=== PATIENT | female | born 1935 | race Caucasian/White ===

== ENCOUNTER 2017-12-03 21:10 | Observation (INO) | payer MEDICARE ==
[2017-12-03] MEDS ORDERED: ASPIRIN 81 MG TABLET, CHEWABLE PO ONE (21:31)
[2017-12-03 22:02] LABS: ABSOLUTE BASOPHILS # (AUTO) 0.1 10^3/uL (0.0-0.2); ABSOLUTE EOSINOPHILS # (AUTO) 0.1 10^3/uL (0.0-0.6); ABSOLUTE LYMPHOCYTES (AUTO) 1.5 10^3/uL (0.5-4.7); ABSOLUTE MONOCYTES (AUTO) 0.5 10^3/uL (0.1-1.4); BASOPHILS % (AUTO) 2.2 % (0-2); EOSINOPHILS % (AUTO) 3.5 % (0-6); HEMATOCRIT 28.8 % (36.0-47.0); HEMOGLOBIN 10.4 g/dL (12.0-15.5); LYMPHOCYTES % (AUTO) 34.5 % (13-45); MEAN CORPUSCULAR VOLUME 89 fl (80-97); PLATELET COUNT 365 10^3/uL (150-450); RED BLOOD COUNT 3.24 10^6/uL (3.72-5.28); RED CELL DISTRIBUTION WIDTH 16.4 % (11.5-14.0); SEGMENTED NEUTROPHILS % (AUTO) 47.8 % (42-78); TOTAL CELLS COUNTED % (AUTO) 100 %; WHITE BLOOD COUNT 4.3 10^3/uL (4.0-10.5)
--- NOTE | 2017-12-03 22:18 | EKG REPORT ---
SEVERITY:- ABNORMAL ECG - SINUS RHYTHM RBBB AND LAFB : Confirmed by: Mariano Bergman 03-Dec-2017 22:17:17
--- NOTE | 2017-12-03 22:18 | RADIOLOGY REPORT (SQ) ---
EXAM DESCRIPTION: CHEST SINGLE VIEW COMPLETED DATE/TIME: 12/03/2017 10:04 pm REASON FOR STUDY: cp COMPARISON: None. NUMBER OF VIEWS: One view. TECHNIQUE: Single frontal radiographic view of the chest acquired. LIMITATIONS: None. FINDINGS: LUNGS AND PLEURA: Slight hyperinflation with areas of scar. Potential COPD. No pneumotho rax or pleural fluid or acute infiltrate. MEDIASTINUM AND HILAR STRUCTURES: No masses. Contour normal. HEART AND VASCULAR STRUCTURES: Heart normal in size. Normal vasculature. BONES: Thoracic scoliosis. HARDWARE: None in the chest. OTHER: No other significant finding. IMPRESSION: No acute abnormality. Findings as above. TECHNICAL DOCUMENTATION: JOB ID: [id number] [employer]- All Rights Reserved Reading location - IP/workstation name: [email or web address]
[2017-12-03 22:21] LABS: ALANINE AMINOTRANSFERASE 27 U/L (9-52); ALBUMIN 4.1 g/dL (3.5-5.0); ALKALINE PHOSPHATASE 69 U/L (38-126); ANION GAP 9 (5-19); ASPARTATE AMINO TRANSFERASE 28 U/L (14-36); BILIRUBIN,DIRECT 0.3 mg/dL (0.0-0.4); BLOOD UREA NITROGEN 14 mg/dL (7-20); CALCIUM 9.4 mg/dL (8.4-10.2); CARBON DIOXIDE 28 mmol/L (22-30); CHLORIDE 107 mmol/L (98-107); CREATINE KINASE 103 U/L (30-135); GLUCOSE 93 mg/dL (75-110); SODIUM 143.7 mmol/L (137-145); TOTAL PROTEIN 6.6 g/dL (6.3-8.2)
[2017-12-03 22:32] LABS: CREATINE KINASE MB 1.06 ng/mL (<4.55)
[2017-12-03 22:33] LABS: TROPONIN I < 0.012 ng/mL
--- NOTE | 2017-12-03 22:35 | ER Document Report ---
ED General - General Chief Complaint: Chest Pain Stated Complaint: CHEST PAIN Time Seen by Provider: 12/03/17 22:34 Notes: Patient is an 82-year-old female who presents with complaints of chest pain. Chest pain started last night was initially moderate to severe and substernal and nonradiating. Pain then turned into just a heaviness and tightness throughout the chest. No shortness of breath but she did feel very nauseous with the pain. Upon arrival to the ER she still has a lot of tightness and heaviness on her chest. She has received aspirin. She has some mild intermittent nausea but no vomiting. No associated abdominal pain. No previous history of coronary disease. She does have a history of hypertension high cholesterol. She had a stress test just over a year ago in [place]. She is currently visiting family from [place]. She is also noticed that she has been here that she has had some leg swelling which improved with compression hose. TRAVEL OUTSIDE OF THE [place] IN LAST 30 DAYS: No Past Medical History - Social History Smoking Status: Never Smoker Frequency of alcohol use: None Drug Abuse: None Family History: Reviewed & Not Pertinent Review of Systems - Review of Systems Notes: My Normal Review Basic REVIEW OF SYSTEMS: CONSTITUTIONAL : Denies fever, chills, or sweats. Denies recent illness. EENT: Denies eye, ear, throat, or mouth pain or symptoms. Denies nasal or sinus congestion. CARDIOVASCULAR: Chest pain RESPIRATORY: Denies cough, cold, or chest congestion. Denies shortness of breath, difficulty breathing, or wheezing. GASTROINTESTINAL: Denies abdominal pain. Some nausea. GENITOURINARY: Denies difficulty urinating, painful urination, burning, frequency, or blood in urine. MUSCULOSKELETAL: Denies neck or back pain or joint pain or swelling. SKIN: Denies rash or skin lesions. NEUROLOGICAL: Denies altered mental status or loss of consciousness. Denies headache. Denies weakness or paralysis or loss of use of either side. Denies problems with gait or speech. Denies sensory or motor loss. ALL OTHER SYSTEMS REVIEWED AND NEGATIVE. Physical Exam - Vital signs Vitals: Temp Pulse Resp BP Pulse Ox 97.7 F 62 18 148/72 H 97 12/03/17 22:14 12/03/17 22:14 12/03/17 22:14 12/03/17 22:14 12/03/17 22:14 - Notes Notes: General Appearance: Well nourished, alert, cooperative, no acute distress, no obvious discomfort. Well appearing. Vitals: reviewed, See vital signs table. Eyes: PERRL, EOMI, Conjuctiva clear Mouth: No decreasd moisture Lungs: No wheezing, No rales, No rhonci, No accessory muscle use, good air exchange bilaterally. Heart: Normal rate, Regular rythm, No murmur, no rub Abdomen: Normal BS, soft, No rigidity, No abdominal tenderness, No guarding, no rebound, Extremities: good pulses in all extremities, no swelling or tenderness in the extremities, no edema. Neuro: speech clear, oriented x 3, normal affect, responds appropriately to questions. Course - Re-evaluation Re-evalutation: 12/04/17 00:53 After the patient received a nitro paste for chest heaviness and tightness resolved. She is now comfortable and looks well. I did talk to her and her daughter at length about my recommendation to be admitted to the hospital being that her story is concerning and also she has multiple risk factors. Heart score is 5. Patient agrees with plan to be admitted to the hospital. I did speak with the hospitalist, Dr. Stanley, who agrees to admit the patient. Dictation of this chart was performed using voice recognition software; therefore, there may be some unintended grammatical errors. - Vital Signs Vital signs: Temp Pulse Resp BP Pulse Ox 97.7 F 62 18 148/72 H 99 12/03/17 22:14 12/03/17 22:14 12/03/17 22:14 12/03/17 22:14 12/03/17 22:20 - Laboratory Result Diagrams: 12/03/17 21:45 12/03/17 21:45 Laboratory results interpreted by me: 12/03/17 21:45 RBC 3.24 L Hgb 10.4 L Hct 28.8 L RDW 16.4 H Basophils % 2.2 H - EKG Interpretation by Me Additional EKG results interpreted by me: 12/03/17 22:35 EKG is reviewed and interpreted by me. EKG shows sinus rhythm with rate of [address] segment elevation. Patient is a right bundle branch and left anterior fascicular block. WA interval and QTc intervals are within normal range. QRS duration is prolonged.
[2017-12-03] MEDS ORDERED: NITROGLYCERIN 2% OINTMENT 1 GM PACKET TP ONE (22:45)
[2017-12-04] MEDS ORDERED: GLUCAGON,HUMAN RECOMB 1 MG INJ SUBCUT PRN (04:41)
[2017-12-04] MEDS ORDERED: DEXTROSE 50%-WATER 25 GM/50 ML DISP.SYRIN IV PRN ×2 (04:41)
[2017-12-04] MEDS ORDERED: ACETAMINOPHEN 325 MG TABLET PO PRN (04:41)
[2017-12-04] MEDS ORDERED: NORMAL SALINE 1000 ML 1,000 ML IV PRN ×2 (04:41→08:02)
[2017-12-04] MEDS ORDERED: DEXTROSE 40% GEL 15 GM TUBE PO PRN ×2 (04:41)
[2017-12-04] MEDS ORDERED: NITROGLYCERIN 0.4 MG/TAB 25 TAB/BOTTLE SL PRN (05:08)
--- NOTE | 2017-12-04 05:08 | PDOC H&P ---
History of Present Illness Admission Date/PCP: 12/04/17 04:20 Patient complains of: Chest tightness History of Present Illness: MICK SAAVEDRA is a 82 year old female who is visiting from [place], comes to the emergency department complaining of chest tightness and heaviness. Around 8 PM she was sitting on the chair and started feeling like an elephant was sitting on her chest, radiated across her chest, 4/10 in intensity, this improved when the nitroglycerin patch was placed in the ED. Symptoms were associated with nausea and shortness of breath, denies diaphoresis, vomiting, dizziness, palpitations. Tells me that she had similar symptoms in the past. 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 She has a normal exertional tolerance, she walks 20 minutes a day with no problems. First set of troponins negative, EKG sinus rhythm with T wave inversion in the anterior leads and RBBB with left anterior fascicular block. No acute ST elevations or ST depressions. By the time I evaluated her she was chest pain-free. Past Medical History Cardiac Medical History: Reports: Hyperlipidema, Hypertension Cardiac History Note: Has been told she has a skipped heartbeat is not sure if is atrial fibrillation Pulmonary Medical History: Reports: Chronic Obstructive Pulmonary Disease (COPD) Endocrine Medical History: Reports: Hypothyroidism Past Surgical History Past Surgical History: Reports: Cholecystectomy, Hysterectomy, Orthopedic Surgery - Left shoulder surgery Social History Smoking Status: Former Smoker - Weight 1996, she used to smoke 4 cigarettes a day Frequency of Alcohol Use: None Drugs: None Past Social History Note: Patient lives in [place] along and is visiting her daughter, completely independent in her ADLs Family History Family History: Reviewed & Not Pertinent Family History: Father when he was 55 years old in a motor vehicle accident. Mother at 72 years old with no medical conditions, she has one sibling healthy. Parental Family History Reviewed: No Children Family History Reviewed: NA Sibling(s) Family History Reviewed.: NA Review of Systems Review of Systems: As outlined in the HPI, all others negative Physical Exam Vital Signs: Temp Pulse Resp BP Pulse Ox 97.7 F 62 19 138/65 H 94 12/03/17 22:14 12/03/17 22:14 12/04/17 04:20 12/04/17 04:20 12/04/17 04:20 Additional comments: General appearance: Well-developed, well-nourished, alert and cooperative, and appears to be in no acute distress Head: Normocephalic Eyes: PEERL, EOMI, vision is grossly intact. Ears: External auditory canal and tympanic membranes clear, hearing grossly intact. Nose: No nasal discharge. Throat: Oral cavity and pharynx normal. No inflammation, swelling, exudate or lesions. Neck: Neck supple, nontender without lymphadenopathy, masses or thyromegaly. Cardiac: Normal S1 and S2. No S3, S4 or murmurs. Rhythm is regular. There is no peripheral edema, cyanosis or pallor. Extremities are warm and well perfused. Capillary refill is less than 2 seconds. No carotid bruits. Thorax : No reproducible chest pain to palpation. Lungs: Clear to auscultation and percussion without rales, rhonchi, wheezing or diminished breath sounds. Not using accessory muscles. Abdomen: Positive bowel sounds. Soft. Nondistended, nontender. No guarding or rebound. No masses. No hepatosplenomegaly Extremities: No significant deformity or joint abnormality. No edema. Peripheral pulses intact. varicosities in lower extremities. Neurological: Cranial nerves II through XII grossly intact. Strength and sensation symmetric and intact throughout. Reflexes 2+ throughout. Skin: Skin normal color, texture and turgor with no lesions or eruptions, warm and dry. Psychiatric: The mental examination revealed the patient was oriented to person , place, and time. The patient was able to demonstrate good judgment on recent , without hallucinations, abnormal affect or abnormal behaviors. Results Laboratory Results: Laboratory review EKG Comments: EKG: sinus rhythm with T wave inversion in the anterior leads and RBBB with left anterior fascicular block. No acute ST elevations or ST depressions. Impressions: Chest X-Ray 12/03/17 21:31 IMPRESSION: No acute abnormality. Findings as above. Assessment & Plan - Diagnosis (1) Chest pain Qualifiers: Chest pain type: unspecified Qualified Code(s): R07.9 - Chest pain, unspecified Is this a current diagnosis for this admission?: Yes Plan: She comes complaining of chest pain, this is in between typical and atypical, she has a stress test every 2 years all of them negative. I will go ahead and keep her on telemetry monitoring, cardiac markers x3, a new stress test. Nitroglycerin sublingual as needed. (2) Irregular heartbeat Is this a current diagnosis for this admission?: Yes Plan: I believe this is atrial fibrillation as the patient is on Multaq and metoprolol , she is not on anticoagulation but is on aspirin. (3) Hypothyroidism Is this a current diagnosis for this admission?: Yes Plan: Continue home medications
[2017-12-04] MEDS ORDERED: ATORVASTATIN CALCIUM 40 MG TABLET PO SCH ×2 (10:00→22:00)
[2017-12-04] MEDS ORDERED: DRONEDARONE HYDROCHLORIDE 400 MG TABLET PO SCH ×2 (10:00→22:00)
[2017-12-04] MEDS ORDERED: ENOXAPARIN SODIUM INJ 40 MG/0.4 ML DISP.SYRIN SUBCUT SCH (10:00)
[2017-12-04] MEDS ORDERED: LEVOTHYROXINE SODIUM 0.025 MG TABLET PO ONE (10:00)
[2017-12-04] MEDS ORDERED: GABAPENTIN 300 MG CAPSULE PO SCH (10:00)
[2017-12-04] MEDS ORDERED: ASPIRIN 81 MG TABLET, CHEWABLE PO SCH (10:00)
[2017-12-04] MEDS ORDERED: REGADENOSON INJ 0.4 MG/5 ML DISP.SYRIN IV ONE (13:21)
[2017-12-04 16:08] VITALS: BP 136/64
--- NOTE | 2017-12-04 18:31 | DRAGON STRESS TEST REPORT ---
INTRAVENOUS LEXISCAN CARDIOLITE STRESS TEST USING SINGLE PHOTON EMMISION COMPUTERIZED TOMOGRAPHIC. DATE OF PROCEDURE: December 04, 2017, INDICATION : Chest pain CARDIAC RISK FACTORS: Dyslipidemia, diabetes RESTING EKG: Sinus rhythm with right bundle branch block pattern STRESS EKG: No significant ST segment changes noted with LexiScan bolus REASON FOR TERMINATION: Protocol. PROCEDURE REPORT: Baseline heart rate 71 beats per minute with blood pressure of 138/72. Patient had no significant complaints. Patient was bolused with Lexiscan 0.4 mg intravenously followed by saline bolus. Heart rate at 2 minutes post bolus 89 with a blood pressure of 133/74. 3 minutes post bolus heart rate 88 with blood pressure of 160/73. No significant EKG changes were noted. Patient had no significant complaints during the procedure or postprocedure. CONCLUSIONS: Normal EKG and hemodynamic response to IV LexiScan. NUCLEAR DATA: At rest the patient was given 10.38 millicuries of technetium 99 sestamibi injected intravenously. As per protocol rest gated SPECT images were obtained. On day of stress test, the patient was given intravenous LexiScan at a dose of 0.4 mg in 5 mL intravenously, followed by flush with normal saline. Subsequently the stress dose of 31.6 millicuries of technetium 99 sestamibi was injected intravenously. As per protocol stress gated images were obtained. NUCLEAR INTERPRETATION: Both raw and processed data were used for interpretation. Visual, qualitative, computer-generated quantitative data was used. There was good myocardial uptake of technetium compound. Motion artifact and soft tissue attenuations were noted. Increased visceral uptake was noted. No definitive areas of transient perfusion defect noted, No definitive areas of fixed perfusion defect or scars noted. EKG gated imaging showed LV EF at 70 %, rest and stress gated EF similar visually. T. I D. ratio was 1.09. Lung heart ratio noted to be within normal limits 0.32. No significant extracardiac and abnormal radiotracer activities were noted. RV free wall uptake was noted to be WNL. IMPRESSION: Also refer to comments under nuclear interpretation. Also test results needs to be interpreted in the context of pretest probability. 1. No definitive areas of transient perfusion defect noted. 2. There is no definitive scintigraphic evidence of myocardial infarction/scar. 3. EKG gated imaging shows left ventricular ejection fraction of approx. 70 %. 4. Clinical correlation requested as occasionally single vessel disease or balanced ischemia could be missed. In approximately 10% of the cases Lexiscan may not cause adequate vasodilatory stress. RECOMMENDATIONS: Aggressive risk factor modification and medical management. Further evaluation may be needed if continued symptoms or other high risk indicators are noted on clinical evaluation. Close cardiology follow-up is also recommended. Clinical correlation with echocardiogram derived ejection fraction. Inability to exercise by itself can lead to increased cardiovascular event risks. Consider cardiology consultation and or follow-up if clinically indicated. I am available for cardiology evaluation and consultation if requested by the diesel motor mechanic, unless patient already has a hospice administrator. Dr. aSmira Bergman. MRCP Board certified in cardiology and sleep medicine. Board certified in nuclear cardiology, adult echocardiography. ROSENDO
--- NOTE | 2017-12-04 22:35 | PDOC DISCHARGE SUMMARY ---
General - Admit/Disc Date/PCP Admission Date/Primary Care Provider: 12/04/17 04:20 Discharge Date: 12/04/17 - Discharge Diagnosis (1) Chest pain Is this a current diagnosis for this admission?: Yes (2) Hypothyroidism Is this a current diagnosis for this admission?: Yes (3) Irregular heartbeat Is this a current diagnosis for this admission?: Yes - Additional Information Resuscitation Status: Full Code Home Medications: Aspirin [Aspirin 81 mg Chewable Tablet] 81 mg PO DAILY 12/04/17 Atorvastatin Calcium 20 mg PO DAILY 12/04/17 Dronedarone Hydrochloride [Multaq 400 mg Tablet] 400 mg PO ASDIR PRN 12/04/17 Gabapentin [Neurontin 300 mg Capsule] 300 mg PO DAILY 12/04/17 Levothyroxine Sodium [Synthroid 0.025 mg Tablet] 0.075 mg PO DAILY 12/04/17 Metoprolol Tartrate [Lopressor 25 mg Tablet] 12.5 mg PO Q12 12/04/17 History of Present Illness History of Present Illness: H&P per Dr. Stanley: MICK SAAVEDRA is a 82 year old female who is visiting from [place], comes to the emergency department complaining of chest tightness and heaviness. Around 8 PM she was sitting on the chair and started feeling like an elephant was sitting on her chest, radiated across her chest, 4/10 in intensity, this improved when the nitroglycerin patch was placed in the ED. Symptoms were associated with nausea and shortness of breath, denies diaphoresis , vomiting, dizziness, palpitations. Tells me that she had similar symptoms in the past. 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 She has a normal exertional tolerance, she walks 20 minutes a day with no problems. First set of troponins negative, EKG sinus rhythm with T wave inversion in the anterior leads and RBBB with left anterior fascicular block. No acute ST elevations or ST depressions. By the time I evaluated her she was chest pain-free. Hospital Course Hospital Course: The patient was admitted for chest pain rule out. Chest xray was negative acute cardiopulmonary findings. EKG revealed RBBB and LAFB; no evidence of ischemia or infarction. CBC demonstrated mild anemia with Hgb of 10.4. CMP is within normal limits. TSH is normal. Troponins were negative x 4. The patient was monitored on continuous cardiac telemetry; no concerning rhythms were noted. The patient was able to undergo nuclear stress testing which revealed a normal EKG and hemodynamic response; LVEF was estimated to be 70%. Unfortunately, the patient left AGAINST MEDICAL ADVICE prior to the stress test report being available. The patient's home medication regiment includes daily aspirin, statin, and beta- [place] therapy. Per H&P, the patient is well connected with an outpatient farmworker egg producing farm. The patient left in stable condition and no further episodes of chest pain had occurred during the short 13 hour admission. She was encouraged to return to the emergency department for any concerning symptoms. Physical Exam Vital Signs: Temp Pulse Resp BP Pulse Ox 97.8 F 70 18 136/64 H 97 12/04/17 15:36 12/04/17 15:36 12/04/17 15:36 12/04/17 15:36 12/04/17 15:36 Intake & Output 12/03/17 12/04/17 12/05/17 06:59 06:59 06:59 Intake Total 237 Balance 237 Weight 59 kg Results Laboratory Results: 12/04/17 05:00 TSH 2.36 12/04/17 12/04/17 12/04/17 05:00 10:43 16:30 Troponin I < 0.012 < 0.012 < 0.012 Impressions: Chest X-Ray 12/03/17 21:31 IMPRESSION: No acute abnormality. Findings as above. Qualifiers - * PATIENT BEING DISCHARGED WITH ANY OF THE FOLLOWING DIAGNOSIS: No Plan Discharge Plan: The patient left AGAINST MEDICAL ADVICE.
[2017-12-05] MEDS ORDERED: LEVOTHYROXINE SODIUM 0.025 MG TABLET PO SCH (06:00)
== END 2017-12-04 18:16 | disposition home or self-care (01) ==
LOC: ER 21:10 → EH 12-04 04:20 → 3W 12-04 05:54
PROVIDERS: ADMIT Internal Medicine; ATTEND Internal Medicine
DX: R07.89 Other chest pain (principal); E03.9 Hypothyroidism, unspecified; R00.9 Unspecified abnormalities of heart beat; R06.02 Shortness of breath; R11.0 Nausea; D64.9 Anemia, unspecified; I45.2 Bifascicular block; M79.89 Other specified soft tissue disorders; Z79.82 Long term (current) use of aspirin; Z79.899 Other long term (current) drug therapy; Z53.21 Procedure and treatment not carried out due to patient leaving prior to being seen by health care provider; Z87.891 Personal history of nicotine dependence
CPT/HCPCS: 93005; 99285; 36415 ×2; 82553; 82550; 84443; 85025; 80053; 84484 ×2; 93017; 71045; 78452; 93010; G0378 ×2; A9500; J2785; A9270 ×5; J1650; Q9969